=== PATIENT | female | born 1995 | race African-American/Black ===

== ENCOUNTER 2017-02-05 07:36 | Emergency (ER) | payer MEDICAID ==
[~2017-02-05] VITALS: Ht 188 cm; Wt 111.6 kg
[2017-02-05 08:01] VITALS: BP 99/79
[2017-02-05] MEDS ORDERED: diphenhdrAMINE HCL 25 MG CAP PO ONE (08:15)
[2017-02-05] MEDS ORDERED: methylPREDNISolone SOD SUCC 125 MG/2 ML VL IM ONE (08:15)
== END 2017-02-05 09:21 | disposition home or self-care (01) ==
LOC: ER 07:36
DX: T78.40XA Allergy, unspecified, initial encounter (principal); L50.0 Allergic urticaria; R60.9 Edema, unspecified; F12.10 Cannabis abuse, uncomplicated; X58.XXXA Exposure to other specified factors, initial encounter
CPT/HCPCS: 96372; 99283; J2930

== ENCOUNTER 2018-02-04 12:53 | Emergency (ER) | payer MEDICAID ==
[~2018-02-04] VITALS: Ht 188 cm; Wt 91.2 kg
[2018-02-04 13:15] VITALS: BP 131/91
[2018-02-04] MEDS ORDERED: METHOCARBAMOL 500 MG TAB PO ONE (15:30)
[2018-02-04] MEDS ORDERED: KETOROLAC TROMETH 60MG/2ML VIAL IM ONE (15:30)
[2018-02-04] MEDS ORDERED: ONDANSETRON ODT 4 MG TAB PO ONE (16:30)
== END 2018-02-04 16:07 | disposition home or self-care (01) ==
LOC: ER 12:53
DX: M54.5 Low back pain (principal); F12.10 Cannabis abuse, uncomplicated
CPT/HCPCS: 96372; 99283; J1885

== ENCOUNTER 2020-11-20 22:37 | Emergency (ER) | payer MEDICAID, OTHER ==
[~2020-11-20] VITALS: Ht 188 cm; Wt 108.4 kg
[2020-11-21 01:10] VITALS: BP 131/72
== END 2020-11-21 01:32 | disposition home or self-care (01) ==
LOC: ER 22:38
DX: S86.912A Strain of unspecified muscle(s) and tendon(s) at lower leg level, left leg, initial encounter (principal); V49.9XXA Car occupant (driver) (passenger) injured in unspecified traffic accident, initial encounter; Y93.89 Activity, other specified; Y92.89 Other specified places as the place of occurrence of the external cause; Y99.8 Other external cause status
CPT/HCPCS: 70450; 71250; 72125; 73562; 74176; 81025